=== PATIENT | female | born 1950 | race Hispanic/Latino ===

== ENCOUNTER 2018-10-14 10:52 | Outpatient (CLI) | payer MEDICARE, OTHER | END 2018-10-14 10:53 | disposition home or self-care (01) | LOC: C.LAB 10:52 ==

== ENCOUNTER 2018-10-24 11:56 | Outpatient (CLI) | payer MEDICARE, OTHER | END 2018-10-24 11:57 | disposition home or self-care (01) | LOC: C.MRIC 11:56 | DX: H91.90 Unspecified hearing loss, unspecified ear (principal) ==

== ENCOUNTER → 2018-11-26 | Outpatient (CLI) | payer MEDICARE, OTHER | LOC: C.MAMMO 09:40 | DX: Z12.31 Encounter for screening mammogram for malignant neoplasm of breast (principal) ==